=== PATIENT | female | born 1960 | race Caucasian/White ===

== ENCOUNTER 2017-08-11 07:18 | Day surgery (SDC) | payer OTHER ==
[~2017-08-11] VITALS: Ht 167.6 cm; Wt 78.7 kg
[2017-08-11 07:54] VITALS: Ht 167.6 cm; Wt 78.7 kg
[2017-08-11] MEDS ORDERED: INSULIN (08:07)
[2017-08-11] MEDS ORDERED: ORAL DIABETES MED (08:07)
[2017-08-11] MEDS ORDERED: [UNRECOGNIZED DRUG - REMARK] (08:07)
[2017-08-11] MEDS ORDERED: CHOL MED (08:07)
[2017-08-11 09:08] VITALS: BP 213/96; PULSE 82; RESP 14
[2017-08-11] MEDS ORDERED: MIDAZOLAM 1 MG/ML 2 ML INJ ONE ×3 (09:37→09:38)
[2017-08-11] MEDS ORDERED: FENTAnyl 50 MCG/ML VIAL ONE (09:38)
--- NOTE | 2017-08-11 09:39 | OPPN ---
Date/Time of Note Date/Time of Note DATE: 08/11/17 TIME: 09:38 Operative Report Preoperative Diagnosis Abdominal pain Screening Postoperative Diagnosis Gastritis with erosions Poor prep and suboptimal colonoscopy examination Internal and external hemorrhoids Operation/Procedure Performed Esophagogastroduodenoscopy and biopsy Colonoscopy Surgeon see signature line infertility medical assistant None Anesthesia: moderate sedation Estimated blood loss: none Transfusion Required none Specimen Gastric mucosal biopsy Grafts/Implants none Complications none DAISY PACHECO MD Aug 11, 2017 09:39
[2017-08-11 10:05] VITALS: PULSE 79; RESP 14
[2017-08-11 10:06] VITALS: BP 161/78
--- NOTE | 2017-08-12 08:35 | GILP ---
DATE OF PROCEDURE: NAME OF PROCEDURES: 1. Esophagogastroduodenoscopy and biopsy. 2. Colonoscopy. SURGEON: Mariela Salomon MD PREOPERATIVE DIAGNOSES: 1. Abdominal pain. 2. Screening colonoscopy. POSTOPERATIVE DIAGNOSES 1. Gastritis with erosions. 2. Gastric mucosal biopsies were taken for Helicobacter pylori test. 3. Colonoscopy all the way to the cecum. 4. Poor prep making the exam very suboptimal. 5. Internal and external hemorrhoids. INDICATION FOR THE PROCEDURE: Ms. Carri Gracia is a 57-year-old female patient who had upper abdominal pain, not responding to therapy. She also needed screening colonoscopy. The procedures and possible complications are well explained to the patient. She understood and consented to the procedure. DESCRIPTION OF PROCEDURE: Under the influence of fentanyl and Versed, the gastroscope was carefully introduced into the esophagus and under direct vision it was advanced to the stomach and through the pylorus into the duodenal bulb and descending duodenum. FINDINGS: ESOPHAGUS: The mucosa was normal. STOMACH: The patient had gastritis with erosions. Gastric mucosal biopsies were taken for H. pylori test. DUODENUM: Normal. The colonoscope was carefully introduced in the rectum and under direct vision, it was advanced all the way to the cecum. FINDINGS: The patient had a very poor prep making the exam very suboptimal. Patient was noted to have internal and external hemorrhoids. She tolerated the procedures very well and there was no complication from the procedures. At the end of the procedures, she was awake with stable vital signs and she was discharged home to the care of her family. IMPRESSION: Please see postoperative diagnosis. PLAN: 1. Omeprazole 40 mg p.o. q.a.m. 2. Await H. pylori test report. 3. Because of the poor prep and suboptimal nature of the examination, the patient will need repeat colonoscopy with better preparation. Dictated By: MARIELA WALL/KHALIDA Conf#: [id number] DID#: [id number] MARCUS
== END 2017-08-11 13:52 | disposition home or self-care (01) ==
LOC: MERGE 07:18 → GIL 07:18
PROVIDERS: ATTEND Internal Medicine Gastroenterology
DX: K29.60 Other gastritis without bleeding (principal); Z12.11 Encounter for screening for malignant neoplasm of colon; K64.8 Other hemorrhoids; K64.4 Residual hemorrhoidal skin tags
CPT/HCPCS: 43239; 45378; 82962; 87081; J2250; J3010; Z7610

== ENCOUNTER 2017-12-22 09:06 | Emergency (ER) | END 2017-12-22 11:30 | disposition home or self-care (01) ==

== ENCOUNTER 2018-01-02 17:24 | Inpatient (IN) | END 2018-01-11 19:30 | disposition home health service (06) | DRG 871 ==

== ENCOUNTER 2018-02-08 11:52 | Emergency (ER) | END 2018-02-09 04:20 | disposition home or self-care (01) ==

== ENCOUNTER 2018-03-05 11:33 | Inpatient (IN) | END 2018-03-07 16:27 | disposition home or self-care (01) | DRG 304 ==

== ENCOUNTER 2018-05-05 19:20 | Inpatient (IN) | END 2018-05-13 12:50 | disposition home or self-care (01) | DRG 682 ==

== ENCOUNTER 2018-05-17 16:14 | Outpatient (CLI) | END 2018-05-17 16:36 | disposition home or self-care (01) ==

== ENCOUNTER 2018-05-25 14:16 | Outpatient (CLI) | END 2018-05-25 16:42 | disposition home or self-care (01) ==

== ENCOUNTER 2018-06-18 00:46 | Emergency (ER) | END 2018-06-18 05:36 | disposition home or self-care (01) ==